=== PATIENT | male | born 2000 | race Caucasian/White ===

== ENCOUNTER 2021-10-24 20:36 | Emergency (ER) | payer MEDICAID ==
[2021-10-24] MEDS ORDERED: Bacitracin Oint 1 GM U/D Packet TOP ONE (21:49)
== END 2021-10-24 22:10 | disposition home or self-care (01) ==
LOC: JP.ED 20:36
DX: S50.312A Abrasion of left elbow, initial encounter (principal); Z91.048 Other nonmedicinal substance allergy status; W11.XXXA Fall on and from ladder, initial encounter
CPT/HCPCS: 73080-26-LT; 73080-LT; 99281; 99283-25